=== PATIENT | female | born 1980 | race Asian ===

== ENCOUNTER 2017-12-30 05:59 | Inpatient (IN) | payer OTHER ==
[2017-12-30] VITALS (8 sets, daily range): BP systolic 97–118; BP diastolic 51–59
[~2017-12-30] VITALS: Ht 154.9 cm; Wt 78.5 kg
[~2017-12-30 05:59] MED LIST: ENDOCET 5-3251 EACH PO; MAGNESIUM250 MG PO; Motrin PO; NOHOMEMEDS; PRENATAL TABLE1 EAC3 PO; Percocet 5/325,Endoc PO; TYLENOL EXTRA500 MG PO
[2017-12-30] MEDS ORDERED: MOTRIN800 MG PO (08:34)
[2017-12-30] MEDS ORDERED: PERCOCET 5/31 TABLET PO (08:35)
[2017-12-30 13:11] LABS: AMPHETAMINE NEGATIVE (500 ng/mL); BARBITURATES NEGATIVE (200 ng/mL); BENZODIAZEPINES NEGATIVE (150 ng/mL); BUPRENORPHINE NEGATIVE (10 ng/mL); COCAINE NEGATIVE (150 ng/mL); METHADONE NEGATIVE (200 ng/mL); METHAMPHETAMINE NEGATIVE (500 ng/mL); OPIATES (MORPHINE) NEGATIVE (100 ng/mL); OXYCODONE NEGATIVE (100 ng/mL); PHENCYCLIDINE NEGATIVE (25 ng/mL); PROPOXYPHENE NEGATIVE (300 ng/mL); THC CANNABINOIDS NEGATIVE (50 ng/mL); TRICYCLIC ANTIDEPRESSANTS NEGATIVE (300 ng/mL)
[2017-12-31 07:25] LABS: BASOPHIL (%) 0.3 % (0-1); EOSINOPHIL (%) 0.3 % (0-5); HEMATOCRIT 27.8 % (36.0-46.0); HEMOGLOBIN 8.9 G/DL (11.9-15.5); IMMATURE GRANULOCYTE (%) 0.5 % (0.0-0.7); LYMPHOCYTE (%) 12.5 % (15-42); LYMPHOCYTE COUNT 1.4 K/uL (1.0-2.8); MCH 26.4 PG (29.0-34.0); MCV 82.5 FL (83-99); MONOCYTE (%) 6.1 % (3-12); MONOCYTE COUNT 0.7 K/uL (0-0.8); NEUTROPHIL (%) 80.3 % (45-76); NEUTROPHIL COUNT 9.2 K/uL (1.8-6.4); PLATELET COUNT 235 K/uL (156-360); RBC DIS.WIDTH-CV 14.6 % (11.8-14.6); RBC DIS.WIDTH-SD 43.8 % (39-53); RED BLOOD COUNT 3.37 M/uL (3.80-5.20); WHITE BLOOD COUNT 11.5 K/uL (4.1-10.2)
[2017-12-31] MEDS ORDERED: ENDOCET 5-3251 EACH PO (11:27)
[2017-12-31] MEDS ORDERED: IBUPROFEN800 MG PO (11:27)
[2017-12-31 16:29] VITALS: BP 114/72
[2017-12-31 19:00] VITALS: BP 117/61
[2017-12-31 22:00] VITALS: BP 110/58
[2018-01-01 03:25] VITALS: BP 110/56
[2018-01-01] MEDS ORDERED: METOCLOPRAMIDE10 MG PO (09:31)
[2018-01-01] MEDS ORDERED: DOCUSATE SODIU100 MG PO (09:31)
[2018-01-01 16:22] VITALS: BP 108/61
== END 2018-01-01 17:55 | disposition home or self-care (01) | DRG 765 ==
LOC: 2WEST 05:59 → 2SOUTH 10:45 → 2WEST 01-01 17:55
PROVIDERS: Obstetrics & Gynecology
PROC: 10D00Z1 Extraction of Products of Conception, Low, Open Approach (ICD-10-PCS; principal; 2017-12-30)
DX: O34.211 Maternal care for low transverse scar from previous cesarean delivery (principal); O35.8XX0 Maternal care for other (suspected) fetal abnormality and damage, not applicable or unspecified; O40.3XX0 Polyhydramnios, third trimester, not applicable or unspecified; Z3A.39 39 weeks gestation of pregnancy; Z37.0 Single live birth; O77.0 Labor and delivery complicated by meconium in amniotic fluid; O99.824 Streptococcus B carrier state complicating childbirth
CPT/HCPCS: 36415; 85025; 86850; 86900; 86901; 88307; J0690; J1100; J1200; J1885; J2274; J2405; J3010; J7120